=== PATIENT | female | born 1980 | race African-American/Black ===

== ENCOUNTER 2022-11-17 12:05 | Emergency (ER) | payer MEDICAID, OTHER ==
[~2022-11-17] VITALS: Ht 160 cm; Wt 51.7 kg
[~2022-11-17 12:05] MED LIST: PREN-385 PO
[2022-11-17 12:25] VITALS: BP 116/87; PULSE 105; RESP 20; TEMP 98; O2SAT 99
[2022-11-17] MEDS ORDERED: MORPHINE SULFATE 4 MG/ML SYR IVP ONE (13:05)
[2022-11-17] MEDS ORDERED: diphenhydrAMINE 50 MG/ML VIAL IVP ONE ×2 (13:05→15:50)
[2022-11-17] MEDS ORDERED: PROCHLORPERAZINE 10 MG/2 ML VIAL IVP ONE (13:05)
[2022-11-17 13:58] LABS: BASOPHILS # (AUTO) 0.1 K/uL (0.00-0.22); BASOPHILS % (AUTO) 1.8 % (0.0-2.0); EOSINOPHILS # (AUTO) 0.1 K/uL (0-0.4); EOSINOPHILS % (AUTO) 1.8 % (0.0-4.0); HEMATOCRIT 44.2 % (36-48); HEMOGLOBIN 14.5 g/dL (12.0-16.0); LYMPHOCYTES # (AUTO) 1.9 K/uL (2.5-16.5); LYMPHOCYTES % (AUTO) 38.9 % (20.5-51.1); MEAN CORPUSCULAR HEMOGLOBIN 30 pg (27-31); MEAN CORPUSCULAR HGB CONC 33 g/dL (33-37); MEAN CORPUSCULAR VOLUME 90.8 fL (80-94); MONOCYTES # (AUTO) 0.5 K/uL (0.8-1.0); MONOCYTES % (AUTO) 10.3 % (1.7-9.3); NEUTROPHILS # (AUTO) 2.4 K/uL (1.8-7.7); NEUTROPHILS % (AUTO) 47.2 % (42.2-75.2); PLATELET COUNT (AUTO) 399 K/uL (140-450); RED BLOOD CELL COUNT(AUTO) 4.86 MIL/uL (4.20-5.40); RED CELL DISTRIBUTION WIDTH 14.4 % (11.6-13.7)
[2022-11-17 14:13] LABS: ALBUMIN 3.6 g/dL (3.4-5.0); ANION GAP 10.9 (8-16); CALCIUM 8.6 mg/dL (8.5-10.1); CARBON DIOXIDE 29.9 mmol/L (21-32); CREATININE 0.7 mg/dL (0.6-1.3); POTASSIUM 4.8 mmol/L (3.5-5.1); TOTAL BILIRUBIN 0.4 mg/dL (0.0-1.0); TOTAL PROTEIN, SERUM 7.2 g/dL (6.4-8.2)
[2022-11-17] MEDS ORDERED: PROCHLORPERAZINE 10 MG/2 ML VIAL ONE (14:54)
[2022-11-17] MEDS ORDERED: diphenhydrAMINE 50 MG/ML VIAL ONE (14:54)
[2022-11-17] MEDS ORDERED: MORPHINE SULFATE 4 MG/ML SYR ONE (14:54)
[2022-11-17 17:45] VITALS: O2SAT 99
[2022-11-17 18:15] VITALS: BP 108/65; PULSE 56; RESP 15; TEMP 98.1; O2SAT 99
== END 2022-11-17 18:15 | disposition home or self-care (01) ==
LOC: MED 12:05
DX: G43.909 Migraine, unspecified, not intractable, without status migrainosus (principal); H53.8 Other visual disturbances; M19.90 Unspecified osteoarthritis, unspecified site; Z98.890 Other specified postprocedural states; Z90.49 Acquired absence of other specified parts of digestive tract; Z79.899 Other long term (current) drug therapy; Z91.013 Allergy to seafood; Z91.018 Allergy to other foods
CPT/HCPCS: 36415; 70450; 70496; 80053; 81025; 85025; 85651; 86140; 96374; 96375; 99285; J0780; J1200; J2270; Q9967

== ENCOUNTER 2023-11-03 14:54 | Emergency (ER) | payer OTHER ==
[~2023-11-03] VITALS: Ht 160 cm; Wt 54.4 kg
[2023-11-03 15:27] VITALS: BP 148/95; PULSE 98; RESP 18; TEMP 98.5; O2SAT 98
[2023-11-03] MEDS: IBUPROFEN 600 MG TAB PO ONE (17:11)
[2023-11-03] MEDS ORDERED: IBUP-2213 PO (17:28)
== END 2023-11-03 17:35 | disposition home or self-care (01) ==
LOC: MED 14:54
DX: S93.401A Sprain of unspecified ligament of right ankle, initial encounter (principal); R03.0 Elevated blood-pressure reading, without diagnosis of hypertension; Z79.899 Other long term (current) drug therapy; Z91.013 Allergy to seafood; W18.42XA Slipping, tripping and stumbling without falling due to stepping into hole or opening, initial encounter; Y92.89 Other specified places as the place of occurrence of the external cause; Y93.89 Activity, other specified; Y99.8 Other external cause status
CPT/HCPCS: 73610; 73630; 99284